=== PATIENT | female | born 1990 | race Caucasian/White ===

== ENCOUNTER 2017-02-21 21:45 | Emergency (ER) | payer MEDICAID, OTHER ==
[~2017-02-21] VITALS: Ht 157.5 cm; Wt 54.7 kg
[~2017-02-21 21:45] MED LIST: [UNRECOGNIZED DRUG - OTHER]; [UNRECOGNIZED DRUG - OTHER]
[2017-02-21] MEDS ORDERED: ALBUTEROL SULFATE 2.5 MG/3 ML NPPB ONE (22:30)
[2017-02-21] MEDS ORDERED: ALBUTEROL SULFATE 2.5 MG/3 ML ONE (22:34)
[2017-02-21 22:56] LABS: ASPARTATE AMINO TRANSFERASE 14 U/L (15-37); BLOOD UREA NITROGEN 15 mg/dL (7-18)
[2017-02-21] MEDS ORDERED: NORG1TAB70 PO (22:56)
[2017-02-21] MEDS ORDERED: MULT-658 PO (22:57)
[2017-02-21] MEDS ORDERED: ESCI5TAB PO (22:57)
[2017-02-21 23:01] LABS: HCG UR OBC PASS
[2017-02-21 23:51] VITALS: BP 125/66
== END 2017-02-22 01:03 | disposition home or self-care (01) ==
LOC: ED 23:26
DX: R10.32 Left lower quadrant pain (principal); R10.2 Pelvic and perineal pain; R05 Cough; B37.9 Candidiasis, unspecified
CPT/HCPCS: 36415; 71010; 80053; 81001; 81025; 83690; 85025; 87086; 87210; 87491; 87591; 87808; 94640; 99285; J7613

== ENCOUNTER 2018-09-21 08:53 | Emergency (ER) | payer OTHER ==
[~2018-09-21] VITALS: Ht 154.9 cm; Wt 56.3 kg
[~2018-09-21 08:53] MED LIST changes: +ESCI5TAB PO; +MULT-658 PO; +NORG1TAB28 PO
[2018-09-21 09:51] LABS: HCG UR SG 1.026 (1.003-1.030); MICROSCOPIC NOT IND
[2018-09-21 09:52] LABS: CULTURE INDICATED? NO
[2018-09-21 09:55] LABS: BASOPHILS # (AUTO) 0.01 x10^3/uL (0-0.1); BASOPHILS % (AUTO) 0 % (0-1); EOSINOPHILS # (AUTO) 0.34 x10^3/uL (0-0.4); EOSINOPHILS % (AUTO) 6 % (1-7); LYMPHOCYTES # (AUTO) 1.82 x10^3/uL (1-3.4); LYMPHOCYTES % (AUTO) 29 % (22-44); MD NO; MEAN CORPUSCULAR HEMOGLOBIN 29.9 pg (27.0-34.8); MEAN PLATELET VOLUME 9.2 fL (7.4-10.4); MONOCYTES # (AUTO) 0.51 x10^3/uL (0.2-0.8); MONOCYTES % (AUTO) 8 % (2-9); NEUTROPHILS # (AUTO) 3.58 x10^3/uL (1.8-6.8); NEUTROPHILS % (AUTO) 57 % (42-75); PLATELET COUNT 236 x10^3/uL (130-400); RED BLOOD COUNT 4.69 x10^6/uL (3.82-5.3)
[2018-09-21 10:06] LABS: CHLORIDE 109 mmol/L (98-107)
[2018-09-21 10:07] LABS: ALANINE AMINOTRANSFERASE 20 U/L (12-78); ANION GAP 7 mmol/L (5-15); CALCIUM 8.4 mg/dL (8.5-10.1); CREATININE 0.85 mg/dL (0.55-1.02)
[2018-09-21 10:08] LABS: ALKALINE PHOSPHATASE 57 U/L (45-117); BILIRUBIN,TOTAL 0.3 mg/dL (0.2-1.0); TOTAL PROTEIN 7.4 g/dL (6.4-8.2)
[2018-09-21 13:35] VITALS: BP 94/46
[2018-09-22 12:25] LABS: CRYPTOSPORIDIUM ANTIGEN Negative (Negative)
[2018-09-22 12:47] LABS: CLOSTRIDIUM DIFFICILE ANTIGEN POSITIVE; CLOSTRIDIUM DIFFICILE TOXIN NEGATIVE (Negative)
== END 2018-09-21 13:38 | disposition home or self-care (01) ==
LOC: ED 10:33
DX: R10.84 Generalized abdominal pain (principal); R19.7 Diarrhea, unspecified; R11.0 Nausea; F32.9 Major depressive disorder, single episode, unspecified
CPT/HCPCS: 36415; 80053; 81003; 81025; 83690; 85025; 87046; 87252; 87324; 87328; 87329; 87427; 87798; 99283

== ENCOUNTER 2020-01-14 08:46 | Emergency (ER) | payer SELFPAY ==
[~2020-01-14] VITALS: Ht 157.5 cm; Wt 51.0 kg
[2020-01-14] MEDS ORDERED: ACETAMINOPHEN 500 MG TABLET ONE (09:14)
--- NOTE | 2020-01-14 09:22 | NUR ---
PT CAME IN CO OF VAGINAL BLEEDING. HX OF 1 MISCARRIAGE.
[2020-01-14] MEDS ORDERED: ACETAMINOPHEN 500 MG TABLET PO ONE (09:30)
[2020-01-14 09:35] LABS: BASOPHILS # (AUTO) 0.02 x10^3/uL (0-0.1); BASOPHILS % (AUTO) 0 % (0-1); EOSINOPHILS # (AUTO) 0.73 x10^3/uL (0-0.4); EOSINOPHILS % (AUTO) 10 % (1-7); LYMPHOCYTES # (AUTO) 1.67 x10^3/uL (1-3.4); LYMPHOCYTES % (AUTO) 23 % (22-44); MD NO; MEAN CORPUSCULAR HEMOGLOBIN 30.1 pg (27.0-34.8); MEAN CORPUSCULAR HGB CONC 33.4 g/dL (32.4-35.8); MEAN CORPUSCULAR VOLUME 89.9 fL (80-100); MEAN PLATELET VOLUME 8.9 fL (7.4-10.4); MONOCYTES # (AUTO) 0.43 x10^3/uL (0.2-0.8); MONOCYTES % (AUTO) 6 % (2-9); NEUTROPHILS # (AUTO) 4.48 x10^3/uL (1.8-6.8); NEUTROPHILS % (AUTO) 61 % (42-75); PLATELET COUNT 234 x10^3/uL (130-400)
--- NOTE | 2020-01-14 09:59 | NUR ---
PT AWARE WE NEED A UA.
[2020-01-14 10:03] LABS: ANION GAP 6 mmol/L (5-15); CALCIUM 8.9 mg/dL (8.5-10.1); CHLORIDE 112 mmol/L (98-107); CREATININE 0.85 mg/dL (0.55-1.02)
[2020-01-14 10:51] VITALS: BP 114/68
--- NOTE | 2020-01-14 10:52 | NUR ---
PT RESTING IN [facility]. STRAIGHT CATH PERFORMED BY FEMALE RN
[2020-01-14 11:00] LABS: CULTURE INDICATED? NO; MICROSCOPIC NOT IND
[2020-01-15] MEDS ORDERED: ALBU0.63 NEB (11:41)
== END 2020-01-14 11:32 | disposition home or self-care (01) ==
LOC: ED 09:13
DX: O20.0 Threatened abortion (principal)
CPT/HCPCS: 36415; 76801; 80048; 81003; 82040; 84702; 85025; 99284

== ENCOUNTER 2020-01-15 10:25 | Emergency (ER) | payer SELFPAY ==
[~2020-01-15] VITALS: Ht 154.9 cm; Wt 50.6 kg
[2020-01-15] MEDS ORDERED: SODIUM CHLORIDE 0.9% 1,000 ML IV ONE (11:33)
--- NOTE | 2020-01-15 11:35 | NUR ---
assumed care of pt. pt presents c/o vaginal bleeding and probable miscarriage and was seen here esterday for same. pt reports that she is having some increased bleeding and abd pain as well as back pain. pt reports that she has had a positive test at home [employer]. reports that she is not using any form of control. ptis having nausea, no vomiting at thie time. orthostatis at bedside are negative. notified. SO at bedside
[2020-01-15] MEDS ORDERED: ALBU0.63 NEB (11:41)
[2020-01-15] MEDS ORDERED: SODIUM CHLORIDE FLUSH 10ML SYR IVF ONE (12:00)
[2020-01-15] MEDS ORDERED: SODIUM CHLORIDE 0.9% 1,000ML IVBOLUS ONE (12:00)
[2020-01-15] MEDS ORDERED: ONDANSETRON 2MG/ML, 2ML IVPush ONE (12:00)
[2020-01-15 12:02] LABS: BASOPHILS # (AUTO) 0.03 x10^3/uL (0-0.1); BASOPHILS % (AUTO) 0 % (0-1); EOSINOPHILS # (AUTO) 0.41 x10^3/uL (0-0.4); EOSINOPHILS % (AUTO) 5 % (1-7); LYMPHOCYTES # (AUTO) 1.31 x10^3/uL (1-3.4); LYMPHOCYTES % (AUTO) 15 % (22-44); MD NO; MEAN CORPUSCULAR HEMOGLOBIN 30.3 pg (27.0-34.8); MEAN CORPUSCULAR HGB CONC 33.6 g/dL (32.4-35.8); MEAN CORPUSCULAR VOLUME 90.2 fL (80-100); MONOCYTES # (AUTO) 0.36 x10^3/uL (0.2-0.8); MONOCYTES % (AUTO) 4 % (2-9); NEUTROPHILS # (AUTO) 6.64 x10^3/uL (1.8-6.8); NEUTROPHILS % (AUTO) 76 % (42-75); PLATELET COUNT 240 x10^3/uL (130-400); RED BLOOD COUNT 4.66 x10^6/uL (3.82-5.3); RED CELL DISTRIBUTION WIDTH 12.1 % (9.6-15.2)
[2020-01-15 12:11] LABS: ALBUMIN 4.4 g/dL (3.4-5.0); ANION GAP 10 mmol/L (5-15); CALCIUM 9.4 mg/dL (8.5-10.1); CHLORIDE 110 mmol/L (98-107); CREATININE 0.86 mg/dL (0.55-1.02)
[2020-01-15] MEDS ORDERED: ONDANSETRON 2MG/ML, 2ML ONE (12:32)
[2020-01-15 13:28] VITALS: BP 92/50
== END 2020-01-15 13:33 | disposition home or self-care (01) ==
LOC: ED 11:31
DX: O03.9 Complete or unspecified spontaneous abortion without complication (principal); O21.8 Other vomiting complicating pregnancy
CPT/HCPCS: 36415; 80048; 82040; 84702; 85025; 96361; 96374; 99283; J2405; J7030

== ENCOUNTER 2020-06-24 13:52 | Emergency (ER) | payer BC ==
[~2020-06-24] VITALS: Ht 157.5 cm; Wt 55.5 kg
[~2020-06-24 13:52] MED LIST changes: +ALBU0.63 NEB
--- NOTE | 2020-06-24 14:37 | NUR ---
BREAK RN: ASSUMED CARE OF PATIENT. PT C/O RIGHT SHARP FLANK PAIN. VS STABLE. NO ACUTE DISTRESS NOTED. CALL LIGHT IN PLACE. WILL CONTINUE TO MONITOR WHILE PRIMARY RN IS ON BRAEK.
[2020-06-24 15:05] LABS: BASOPHILS # (AUTO) 0.01 x10^3/uL (0-0.1); BASOPHILS % (AUTO) 0 % (0-1); EOSINOPHILS # (AUTO) 0.51 x10^3/uL (0-0.4); EOSINOPHILS % (AUTO) 9 % (1-7); LYMPHOCYTES # (AUTO) 2.22 x10^3/uL (1-3.4); LYMPHOCYTES % (AUTO) 38 % (22-44); MD NO; MEAN CORPUSCULAR HEMOGLOBIN 30.5 pg (27.0-34.8); MEAN CORPUSCULAR HGB CONC 33.5 g/dL (32.4-35.8); MEAN CORPUSCULAR VOLUME 90.8 fL (80-100); MEAN PLATELET VOLUME 8.6 fL (7.4-10.4); MONOCYTES # (AUTO) 0.41 x10^3/uL (0.2-0.8); MONOCYTES % (AUTO) 7 % (2-9); NEUTROPHILS # (AUTO) 2.75 x10^3/uL (1.8-6.8); NEUTROPHILS % (AUTO) 47 % (42-75); PLATELET COUNT 197 x10^3/uL (130-400); RED BLOOD COUNT 4.39 x10^6/uL (3.82-5.3); RED CELL DISTRIBUTION WIDTH 11.9 % (9.6-15.2)
[2020-06-24 15:18] LABS: ALANINE AMINOTRANSFERASE 17 U/L (12-78); ALBUMIN 3.9 g/dL (3.4-5.0); ANION GAP 4 mmol/L (5-15); CALCIUM 8.8 mg/dL (8.5-10.1); CHLORIDE 111 mmol/L (98-107); CREATININE 0.75 mg/dL (0.55-1.02)
[2020-06-24 15:22] LABS: ALKALINE PHOSPHATASE 54 U/L (45-117); BILIRUBIN,TOTAL 0.5 mg/dL (0.2-1.0); TOTAL PROTEIN 7.3 g/dL (6.4-8.2)
--- NOTE | 2020-06-24 16:11 | NUR ---
PT ABLE TO AMBULATE STEADILY TO BATHROOM TO PROVIDE URINE SAMPLE.
[2020-06-24 16:18] LABS: MICROSCOPIC AUTO
[2020-06-24 17:19] VITALS: BP 101/51
== END 2020-06-24 17:21 | disposition home or self-care (01) ==
LOC: ED 14:43
DX: N30.00 Acute cystitis without hematuria (principal); H00.021 Hordeolum internum right upper eyelid; Z87.891 Personal history of nicotine dependence
CPT/HCPCS: 36415; 80053; 81001; 84703; 85025; 87086; 99283

== ENCOUNTER 2020-08-14 12:03 | Emergency (ER) | payer BC ==
[~2020-08-14] VITALS: Ht 157.5 cm; Wt 50.3 kg
[2020-08-14 12:07] VITALS: BP 110/78
--- NOTE | 2020-08-14 12:54 | NUR ---
Patient/Caregiver given discharge instructions and they have confirmed that they understand the instructions. Patient ambulatory with steady gait.
== END 2020-08-14 12:56 | disposition home or self-care (01) ==
LOC: ED 12:50
DX: B34.9 Viral infection, unspecified (principal); M79.10 Myalgia, unspecified site; R53.1 Weakness; R51.9 Headache, unspecified; R09.81 Nasal congestion
CPT/HCPCS: 36415; 87635; 99283

== ENCOUNTER 2021-04-04 04:10 | Emergency (ER) | payer BC, OTHER ==
[~2021-04-04] VITALS: Ht 157.5 cm; Wt 59.4 kg
[~2021-04-04 04:10] MED LIST changes: -ESCI5TAB PO; +ESCI5TAB8 PO
[2021-04-04] MEDS ORDERED: DEXAMETHASONE 4 MG/ML, 5ML ONE (04:39)
[2021-04-04] MEDS ORDERED: DEXAMETHASONE 4 MG/ML, 1ML PO ONE (05:00)
[2021-04-04 05:14] VITALS: BP 122/82
== END 2021-04-04 05:15 | disposition home or self-care (01) ==
LOC: ED 05:00
DX: B34.9 Viral infection, unspecified (principal); Z20.822 Contact with and (suspected) exposure to COVID-19; H92.01 Otalgia, right ear
CPT/HCPCS: 87081; 87147; 87880; 99283; J1100; U0003; U0005

== ENCOUNTER 2021-05-20 22:03 | Emergency (ER) | payer OTHER ==
[~2021-05-20] VITALS: Ht 157.5 cm; Wt 57.4 kg
[2021-05-20 22:10] VITALS: BP 108/59
[2021-05-20] MEDS ORDERED: ONDANSETRON ODT 4 MG PO ONE (22:30)
[2021-05-20] MEDS ORDERED: ONDANSETRON ODT 4 MG ONE (23:03)
== END 2021-05-20 23:09 | disposition home or self-care (01) ==
LOC: ED 22:30
DX: J06.9 Acute upper respiratory infection, unspecified (principal); Z20.822 Contact with and (suspected) exposure to COVID-19; J40 Bronchitis, not specified as acute or chronic
CPT/HCPCS: 99283; Q0162; U0003; U0005